=== PATIENT | female | born 1975 | race Caucasian/White ===

== ENCOUNTER 2017-02-12 13:35 | Emergency (ER) | payer OTHER ==
[2017-02-12 13:45] VITALS: BP 151/88
--- NOTE | 2017-02-12 13:51 | PHYS DOC ---
General Chief Complaint: FOOT INJURY PAIN Stated Complaint: LEFT FOOT PAIN Time Seen by MD: 13:41 Source: patient Exam Limitations: no limitations Problems: History of Present Illness Initial Comments Patient is a 41-year-old female who comes to the ED complaining of left fifth toe pain. Patient states that 2 nights ago she accidentally kicked a piece of furniture while walking at home. She's had pain and swelling of the toe since that time. She's been wearing flip flops as she doesn't think she can wear closed shoes due to the lateral pressure and discomfort it would cause on her toe. She denies numbness tingling weakness or radiating symptoms, huur-qwc-[id number] medications icing and elevating have been helping. She's come to the ED because she works as an RN at [employer] and is scheduled to work [employer]. She does not think she'll be able to wear shoes for work and feels she may need some pain medications. Onset: other (2 nights ago) Severity: severe Pain/Injury Location: left 5th toe Method of Injury: direct blow Modifying Factors: worse with jarring, worse with movement, improves with rest Allergies: Coded Allergies: fluoxetine (Verified Allergy, Unknown, 09/18/16) Past Medical History Medical History: no pertinent history Surgical History: noncontributory Social History Smoker: less than 1 pack/day Alcohol: occasionally Drugs: none Review of Systems Constitutional: denies chills, denies fever Respiratory: denies cough, denies shortness of breath Cardiovascular: denies chest pain, denies palpitations Gastrointestinal: denies nausea, denies vomiting Genitourinary: denies dysuria, denies frequency Musculoskeletal: see HPI Psychiatric/Neurological: see HPI Physical Exam General Appearance: WD/WN, no apparent distress HEENT: normal ENT inspection Neck: non-tender, supple Cardiovascular/Respiratory: normal peripheral pulses, no respiratory distress Back: no CVA tenderness, no vertebral tenderness Ankles: bilateral ankle non-tender, bilateral ankle normal inspection, bilateral ankle normal range of motion, bilateral ankle no evidence of injury Feet: right foot non-tender, right foot normal inspection, right foot normal range of motion, right foot no evidence of injury, left foot other (fifth toe swelling and ecchymosis with exquisite tenderness at the proximal phalanx. Tendons appear to be intact the toe is neurovascularly intact.) Neurologic/Tendon: normal sensation, normal motor functions, normal tendon functions, responds to pain, no evidence tendon injury Psychiatric: alert, oriented x 3 Skin: warm/dry (toe bruising as above) Orders, Labs, Meds Left foot: Nondisplaced fracture of the proximal fifth phalanx. Images reviewed by Dr. Lujan. I discussed the treatment plan patient expressed agreement and understanding of same. Departure Time of Disposition: 14:24 Disposition: 01 HOME, SELF-CARE Diagnosis: nondisplaced fracture proximal left 5th phalanx Condition: GOOD Patient Instructions: RICE - Routine Care for Injuries, [id number], Toe Fracture Additional Instructions: RICE, see handout. Off work today and tomorrow as needed. Wear the postop shoe and jasbir tape as needed for symptom control. Ahak-ikx-kdayqea ibuprofen for baseline discomfort. Prescription: [place] 5 mg quantity 10 Follow-up with your doctor this week for recheck. Return to the ED with new or changing symptoms. KYMBERLY LUJAN DO Feb 12, 2017 13:51
--- NOTE | 2017-02-12 14:25 | RAD ---
Examination: 3 views of the left foot History: History of fall, pain in the left lateral foot Comparison: None available. Findings: The alignment of the tarsal bones, tarsometatarsal joints grossly appears unremarkable. The alignment of the metatarsophalangeal joints, interphalangeal grossly appears unremarkable There is an oblique nondisplaced fracture of the distal shaft of the proximal phalanx of the fifth toe. Impression: Oblique nondisplaced fracture of the distal shaft of the proximal phalanx of the fifth toe.
== END 2017-02-12 14:35 | disposition home or self-care (01) ==
LOC: ER 13:35
DX: S92.515A Nondisplaced fracture of proximal phalanx of left lesser toe(s), initial encounter for closed fracture (principal); F17.200 Nicotine dependence, unspecified, uncomplicated; Z88.8 Allergy status to other drugs, medicaments and biological substances; W22.8XXA Striking against or struck by other objects, initial encounter; Y93.01 Activity, walking, marching and hiking; Y99.8 Other external cause status; Y92.89 Other specified places as the place of occurrence of the external cause
CPT/HCPCS: 73630; 99284

== ENCOUNTER 2020-08-30 17:01 | Emergency (ER) | payer OTHER ==
[~2020-08-30] VITALS: Ht 165.1 cm; Wt 81.0 kg
[2020-08-30] MEDS ORDERED: KETOROLAC 60 MG/2 ML VIAL. IM ONE (17:45)
[2020-08-30] MEDS ORDERED: CYCLOBENZAPRINE 10 MG TABLET. PO ONE (17:45)
[2020-08-30] MEDS ORDERED: methylPREDNISolone ACETATE 80 MG/ML VIAL. IM ONE (17:45)
--- NOTE | 2020-08-30 18:07 | RAD ---
Exam: CT the lumbar spine without contrast INDICATION: Lower back pain TECHNIQUE: Sequential axial images through the lumbar spine obtained without IV contrast. Sagittal an d coronal reformatted images were reconstructed from the axial data and reviewed. Comparisons: None FINDINGS: Vertebral body heights and alignment are well-maintained. Fracture to the lumbar spine is not identified. No significant spondylotic changes lumbar spine. Visualized paraspinal soft tissues are unremarkable. IMPRESSION: Negative CT lumbar spine for acute traumatic injury. Exposure: One or more of the following in the visualized dose reduction techniques were utilized for this examination: 1. Automated exposure control 2. Adjustment of the MA and/or KV according to patient size 3. Use of iterative of reconstructive technique Electronically signed by: Adriana Alicea MD (08/30/2020 6:04 PM) [facility]
[2020-08-30 18:43] LABS: BACTERIA,URINE 0 /HPF (0-FEW); BILIRUBIN,URINE NEG (NEG); CLARITY,URINE CLEAR; COLOR,URINE COLORLESS; GLUCOSE,URINE NEG (NEG); NITRITE,URINE NEG (NEG); RBC,URINE 0 /HPF (0-2); SQUAMOUS EPITHELIAL CELL,UR FEW /LPF; UROBILINOGEN,URINE 0.2 mg/dL (0.2 mg/dL); WBC,URINE 0 /HPF (0-4)
--- NOTE | 2020-08-30 19:12 | PHYS DOC ---
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 Patient states this is the worst back pain she has ever had in her life, patient points to the left side of her back. Patient states she is unable to sit straight up, is unable to get herself in a standing position without lifting herself by her arms. Patient rates her pain a 10/10 on a 1-10 pain scale. Patient denies loss of continence bowel or bladder, denies vaginal discharge, denies urinary tract type signs and symptoms, denies STI concerns. Patient denies tingling or numbness down her legs. Patient denies tingling or numbness on her buttocks. (MALLORY BUSCH APRN) Review of Systems Review of Systems 14 body systems of review of systems have been reviewed. See HPI for pertinent positives and negative responses, otherwise all other systems are negative, nonpertinent or noncontributory. (MALLORY BUSCH APRN) Current Medications Current Medications Current Medications Medications (Trade) Dose Ordered Sig/Carlotta Start Time Stop Time Status Last Admin Dose Admin Cyclobenzaprine HCl (Flexeril) 10 mg 1X ONCE 08/30/20 17:45 08/30/20 17:46 DC 08/30/20 17:57 10 MG Ketorolac Tromethamine (Toradol Im) 60 mg 1X ONCE 08/30/20 17:45 08/30/20 17:46 DC 08/30/20 18:02 60 MG Methylprednisolone Acetate (DEPO-Medrol IM) 80 mg 1X ONCE 08/30/20 17:45 08/30/20 17:46 DC 08/30/20 18:02 80 MG (MALLORY BUSCH APRN) Allergies Allergies Allergies Coded Allergies Type Severity Reaction Last Updated Verified fluoxetine Allergy Intermediate Unknown 08/30/20 Yes (MALLORY BUSCH APRN) Physical Exam Physical Exam Constitutional: Well developed, well nourished, no acute distress, non-toxic appearance. Patient sitting in chair leaning to the right with grimace on face. HENT: Normocephalic, atraumatic, bilateral external ears normal, oropharynx moist, no oral exudates, nose normal. Eyes: PERRLA, EOMI, conjunctiva normal, no discharge. Neck: Normal range of motion, no tenderness, supple, no stridor. Cardiovascular:Heart rate regular rhythm, no murmur Lungs & Thorax: Bilateral breath sounds clear to auscultation Abdomen: Bowel sounds normal, soft, no tenderness, no masses, no pulsatile masses. Skin: Warm, dry, no erythema, no rash. Back: No left or right sided CVA tenderness, left-sided lumbar tenderness without radiation down buttocks or extremity, no saddle anesthesia appreciated, no crepitus, no ecchymotic areas appreciated. No distal extremity swelling. Extremities: No tenderness, no cyanosis, no clubbing, ROM intact, no edema. Neurologic: Alert and oriented X 3, normal motor function, normal sensory function, no focal deficits noted. Psychologic: Affect normal, judgement normal, mood normal. (MALLORY BUSCH APRN) Current Patient Data Vital Signs Vital Signs Date Time Temp Pulse Resp B/P (MAP) Pulse Ox O2 Delivery O2 Flow Rate FiO2 08/30/20 17:20 96.6 18 155/86 (109) 99 Lab Results Laboratory Tests Test 08/30/20 17:47 08/30/20 18:10 Urine Collection Type Unknown Urine Color Colorless Urine Clarity Clear Urine pH 7.0 Urine Specific [place] 1.010 Urine Protein Neg (NEG-TRACE) Urine Glucose (UA) Neg mg/dL (NEG) Urine Ketones (Stick) Neg mg/dL (NEG) Urine Blood Trace (NEG) Urine Nitrite Neg (NEG) Urine Bilirubin Neg (NEG) Urine Urobilinogen Dipstick 0.2 mg/dL (0.2 mg/dL) Urine Leukocyte Esterase Neg (NEG) Urine RBC 0 /HPF (0-2) Urine WBC 0 /HPF (0-4) Urine Squamous Epithelial Cells Few /LPF Urine Bacteria 0 /HPF (0-FEW) POC Urine HCG, Qualitative hcg negative (Negative) (MALLORY BUSCH APRN) EKG EKG [] (MALLORY BUSCH APRN) Radiology/Procedures Radiology/Procedures PATIENT: XAVIER ELMORE EACCOUNT: [id number] : 1975 LOCATION: ER AGE: 45 SEX: F EXAM STATUS: REG ER ORD. PHYSICIAN: MALLORY BUSCH APRN REASON: LOW BACK PAIN AFTER LIFTING PROCEDURE: CT LUMBAR SPINE WO CONTRAST Exam: CT the lumbar spine without contrast INDICATION: Lower back pain TECHNIQUE: Sequential axial images through the lumbar spine obtained without IV contrast. Sagittal and coronal reformatted images were reconstructed from the axial data and reviewed. Comparisons: None FINDINGS: Vertebral body heights and alignment are well-maintained. Fracture to the lumbar spine is not identified. No significant spondylotic changes lumbar spine. Visualized paraspinal soft tissues are unremarkable. IMPRESSION: Negative CT lumbar spine for acute traumatic injury. Exposure: One or more of the following in the visualized dose reduction techniques were utilized for this examination: 1. Automated exposure control 2. Adjustment of the MA and/or KV according to patient size 3. Use of iterative of reconstructive technique Electronically signed by: Adriana Mills MD (08/30/2020 6:04 PM) [facility] DICTATED AND SIGNED BY: ADRIANA MILLS MD DATE: 08/30/201801 CC: MALLORY BUSCH APRN; LOGAN ELMORE MD ~MTH0 0 (MALLORY BUSCH APRN) Heart Score Risk Factors: Risk Factors: DM, Current or recent (<one month) smoker, HTN, HLP, family history of CAD, obesity. Risk Scores: Risk Factors: DM, Current or recent (<one month) smoker, HTN, HLP, family history of CAD, obesity. (MALLORY BUSCH APRN) Course & Med Decision Making Course & Med Decision Making Pertinent Labs and Imaging studies reviewed. (See chart for details) 45-year-old female, vital signs stable, presents emergency department with low back pain after lifting maneuvers at work last night. Physical examination consistent with lumbar strain, will CT to rule out spontaneous fracture or i nfectious process. Urinalysis assay and urine test. The patient's urine was not infected, she was not per urine test, CT negative for house radiologist interpretation. Patient was given 60 mg IM ketorolac, 10 mg p.o. Flexeril, 80 mg IM Depo-Medrol. Upon reexamining the patient, patient states she is feeling better, her pain is gone from a 10/10 down to a 6/10 pain, offered prescriptions for Flexeril and ibuprofen, patient states she will just take her own jkri-gpj-[id number] ibuprofen at home, will give prescription for 10 mg Flexeril. Recommended RICE therapy at home, follow-up with primary care for ongoing back pain, return to ER precautions and concerns, patient had no further questions or concerns and was discharged home without incident. (MALLORY BUSCH APRN) Dragon Disclaimer Dragon Disclaimer This electronic medical record was generated, in whole or in part, using a voice recognition dictation system. (MALLORY BUSCH APRN) Departure Departure: Impression: Primary Impression: Lumbago Additional Impression: Back strain Disposition: 01 DC HOME SELF CARE/HOMELESS Condition: IMPROVED Referrals: LOGAN ELMORE MD (PCP) Patient Instructions: Back Exercises, Back Pain in Additional Instructions: Take prescribed muscle relaxer as directed, follow-up with your primary care physician for ongoing pain, have given you a work excuse for the next 2 days, please return the emergency department for worsening symptoms or other concerns. EMERGENCY DEPARTMENT GENERAL DISCHARGE INSTRUCTIONS Thank you for coming to [facility] (ED) today and trusting us with you care. We trust that you had a positivie experience in our Emergency Department. If you wish to speak to the department management, you may call the director at [phone]. YOUR FOLLOW UP INSTRUCTIONS ARE FOLLOWS: 1. Do you have a private Doctor? If you do not have a private doctor, please ask for a resource list of physicians or clinics that may be able to assist you with follow up care. 2. The Emergency Physician has interpreted your x-rays. The X-Ray specialist will also review them. If there is a change in the findings, you will be notified in 48 hours when at all possible. 3. A lab test or culture has been done, your results will be reviewed and you will be notified if you need a change in treatment. ADDITIONAL INSTRUCTIONS AND INFORMATION: 1. Your care today has been supervised by a physician who is specially trained in emergency care. Many problems require more than one evaluation for a complete diagnosis and treatment. We recommend that you schedule your follow up appointment as recommended to ensure complete treatment of you illness or injury. If you are unable to obtain follow up care and continue to have a problem, or if your condition worsens, we recommend that you return to the ED. 2. We are not able to safely determine your condition over the phone nor are we able to give sound medical advice over the phone. For these safety reasons, if you call for medical advice we will ask you to come to the ED for further evaluation. 3. If you have any questions regarding these discharge instructions please call the ED at [phone]. SAFETY INFORMATION: In the interest of safety, wellness, and injury prevention; we encourage you to wear your sealbelt, if you smoke; quite smoking, and we encourage family to use a protec tive helmet for bicycling and other sporting events that present an increased risk for head injury. IF YOUR SYMPTOMS WORSEN OR NEW SYMPTOMS DEVELOP, OR YOU HAVE CONCERNS ABOUT YOUR CONDITION; OR IF YOUR CONDITION WORSENS WHILE YOU ARE WAITING FOR YOUR FOLLOW UP APPOINTMENT; EITHER CONTACT YOUR PRIMARY CARE DOCTOR, THE PHYSICIAN WHOSE NAME AND NUMBER YOU WERE GIVEN, OR RETURN TO THE ED IMMEDIATELY. Scripts Cyclobenzaprine Hcl (CYCLOBENZAPRINE HCL) 10 Mg Tablet 1 TAB PO TID PRN PRN for PAIN, #12 TAB 0 Refills Prov: MALLORY BUSCH APRN 08/30/20 Attending Co-Sign Attending Co-Sign The patient was seen and interviewed as well as examined at the bedside. The chart was reviewed. The case was discussed. Agree with the plan of care. (SHADI JUDGE MD) Problem Qualifiers Primary Impression: Lumbago Chronicity: acute Back pain laterality: left Sciatica presence: without sciatica Qualified Codes: M54.5 - Low back pain Additional Impression: Back strain Encounter type: initial encounter Qualified Codes: S39.012A - Strain of muscle, fascia and tendon of lower back, initial encounter MALLORY BUSCH APRN Aug 30, 2020 19:12 SHADI JUDGE MD Aug 31, 2020 01:05
[2020-08-30] MEDS ORDERED: CYCL-331 PO (19:25)
[2020-08-30 19:35] VITALS: BP 145/76
[2020-08-30] MEDS ORDERED: HYDROcodone/APAP 5/325MG 1 TAB TABLET PO ONE (19:45)
== END 2020-08-30 19:41 ==
LOC: ER 17:01
DX: S39.012A Strain of muscle, fascia and tendon of lower back, initial encounter (principal); K58.9 Irritable bowel syndrome, unspecified; Z90.49 Acquired absence of other specified parts of digestive tract; Z98.890 Other specified postprocedural states; Z88.8 Allergy status to other drugs, medicaments and biological substances; X50.9XXA Other and unspecified overexertion or strenuous movements or postures, initial encounter; Y93.89 Activity, other specified; Y92.89 Other specified places as the place of occurrence of the external cause; Y99.8 Other external cause status
CPT/HCPCS: 72131; 81001; 81025; 96372; 99284; J1040; J1885

== ENCOUNTER → 2021-10-05 | Outpatient (CLI) | payer OTHER ==
[~2021-10-05] MED LIST: CYCL10TA19 PO
--- NOTE | 2021-10-05 14:20 | RAD ---
Exam: XR HAND_RIGHT 3 VIEWS History: Right hand swelling and pain for 4 days Comparison: None. Findings: Osseous mineralization is normal. No acute fracture or dislocaton. No significant degenerative change s. Soft tissues are unremarkable. Impression: 1. No acute osseous abnormality in the right hand. Electronically signed by: Matt Osborn MD (10/05/2021 2:17 PM) [id number]
== END ==
LOC: RAD 13:25
PROVIDERS: ATTEND Nurse Practitioner Family
DX: M79.89 Other specified soft tissue disorders (principal); M79.641 Pain in right hand
CPT/HCPCS: 73130